=== PATIENT | female | born 1960 | race Caucasian/White ===

== ENCOUNTER 2017-02-15 11:56 | Emergency (ER) | payer OTHER ==
[2017-02-15] MEDS ORDERED: NS 1,000 ML IV ONE (12:28)
[2017-02-15] MEDS ORDERED: ONDANSETRON 4 MG/2 ML VIAL IVP ONE (12:28)
--- NOTE | 2017-02-15 12:28 | EDPHY ---
H & P Stated Complaint: bilateral vp scientific affairs shunts, being adjust, nauseous for days HPI/ROS: HPI CHIEF COMPLAINT: Headache with nausea HISTORY OF PRESENT ILLNESS: This patient very pleasant 56-year-old female significant past medical history for pseudotumor cerebri, status post MANAGER STRATEGY shots bilaterally, followed by Dr. Wang with Neurosurgery, she presents to the emergency room with ongoing nausea with headache but no vomiting. No neck pain no fever. She states that she had her shunts adjusted on either Wednesday or of last week she thinks that her pressure is low intracranially and that is why she is having ongoing throbbing frontal and global headache as well as associated nausea but no vomiting. She has been taking Zofran at home with minimal relief. She talked to Dr. Wang office and was referred to the emergency room. She does live in [place] drove here by her . Upon arrival here in emergency room she does complain of nausea, photophobia global headache however appears well. Past Medical History: Pseudotumor cerebri, thyroid disease Past Surgical History: MANAGER STRATEGY shunts, orthopedic surgery Social History: Denies daily use of drugs alcohol tobacco products, lives in [place] Dr. Wang with Neurosurgery is her neurosurgeon. Family History: Noncontributory ROS REVIEW OF SYSTEMS: A comprehensive 10 point review of systems is otherwise negative aside from elements mentioned in the history of present illness. Exam Constitutional appears well nontoxic triage nursing summary reviewed, vital signs reviewed, awake/alert. Eyes normal conjunctivae and sclera, EOMI, PERRLA. 4 mm equal reactive to light. HENT normal inspection, atraumatic, moist mucus membranes, no epistaxis, neck supple/ no meningismus, no raccoon eyes. Respiratory clear to auscultation bilaterally, normal breath sounds, no respiratory distress, no wheezing. Cardiovascular rate normal, regular rhythm, no murmur, no edema, distal pulses normal. Gastrointestinal soft, non-tender, no rebound, no guarding, normal bowel sounds, no distension, no pulsatile mass. Genitourinary no CVA tenderness. Musculoskeletal no midline vertebral tenderness, full range of motion, no calf swelling, no tenderness of extremities, no meningismus, good pulses, neurovascularly intact. Skin pink, warm, & dry, no rash, skin atraumatic. Neurologic awake, alert and oriented x 3, AAOx3, moves all 4 extremities equally, motor intact, sensory intact, CN II-XII intact, normal cerebellar, normal vision, normal speech. Psychiatric normal mood/affect. Heme/Lymph/Immune no lymphadenopathy. Differential Diagnosis: Includes but is not limited to in a particular order, MANAGER STRATEGY shunt malfunction, hydrocephalus, low-pressure hydrocephalus, dehydration, electrolyte disturbance, infection Medical Decision Making: Plan for this patient IV fluid bolus for hydration, IV morphine for pain control, IV Zofran for nausea consult Neurosurgery for evaluation after CT head without contrast Re-evaluation: 1328: A consult Neurosurgery this time to evaluate see the patient. Patient back from CT scan at this time. CT scan results pending. CT scan of the Head w/o The results of the study are normal shot placement. However compared her CT scan in 2011 she has new edema around her shots. The study was read by Dr. garvin. I viewed the images myself on the PACS system. 1358: Neurosurgery is at bedside evaluating the patient. Dr. Sonido Wang, Zafar VIDALES 1419: Neurosurgery did see and evaluate the patient Dr. Sonido Wang. They did adjust her MANAGER STRATEGY shunts. She does feel better in terms of pain. She tells me her headache is improved from 6/10 to 3/10. She would like to try something different sides morphine. She has done well with migraine cocktail in the past. 1514: Patient is feeling much better after migraine cocktail. She tells me her headache is resolved. Neurological exam unremarkable. CT scan reviewed blood work reviewed. Vital signs reviewed. She would like to go home. She is requesting a prescription for Zofran. I explained return emergency room if she develops any worsening symptoms includes chest pain, shortness of breath, severe headache, vomiting. She understands. Source: Patient - Personal History Current Tetanus/Diphtheria Vaccine: Yes Current Tetanus Diphtheria and Acellular Pertussis (TDAP): Yes - Medical/Surgical History Hx Asthma: No Hx Chronic Respiratory Disease: No Hx Diabetes: No Hx Cardiac Disease: No Hx Renal Disease: No Hx Cirrhosis: No Hx Alcoholism: No Hx HIV/AIDS: No Hx Splenectomy or Spleen Trauma: No Other PMH: MANAGER STRATEGY shunts, hypothyroid, tonsillectomy, hysterectomy (still has L ovary), L knee surgery, cholecystectomy - Social History Smoking Status: Never smoked Constitutional: Initial Vital Signs Temperature (C) 36.4 C 02/15/17 12:02 Heart Rate 84 02/15/17 12:02 Respiratory Rate 17 02/15/17 12:02 Blood Pressure 181/99 H 02/15/17 12:02 O2 Sat (%) 93 02/15/17 12:02 O2 Delivery Mode Room Air Allergies/Adverse Reactions: hydromorphone HCl [From Dilaudid] Allergy (Verified 02/15/17 12:00) paroxetine HCl [From Paxil] Allergy (Verified 02/15/17 12:00) "KINDEY SHUT DOWN" Penicillins Allergy (Verified 02/15/17 12:00) Hives Home Medications: Medication Instructions Recorded Aspirin 81mg (*) 02/15/17 Lisinopril 02/15/17 Ondansetron 02/15/17 Ondansetron HCl [Zofran] 4 mg PO Q4-6PRN PRN #10 tablet 02/15/17 Synthroid 02/15/17 Medical Decision Making - Diagnostics Imaging Results: Imaging Impressions Head CT 02/15/17 12:38 Impression: 1. Bilateral frontal ventricular peritoneal shunts without hydrocephalus. 2. No acute hemorrhage, midline shift, or epidural/subdural hematoma. 3. Nonspecific new white matter edema surrounding bilateral frontal shunt tracts in the subcortical convexity regions, left greater than right. 4. Consider MRI of the brain without and with contrast enhancement, if there is continued clinical concern. Findings and recommendations discussed with Emergency Department physician, David Barnard MD at 1357 hours, 02/15/2017. Final report concurs with initial preliminary interpretation. - Data Points Laboratory Results: Laboratory Results 02/15/17 12:35 02/15/17 12:35 02/15/17 02/15/17 02/15/17 12:35 12:35 12:35 WBC 7.51 10^3/uL 10^3/uL (3.80-9.50) RBC 5.36 10^6/uL H 10^6/uL (4.18-5.33) Hgb 15.2 g/dL g/dL (12.6-16.3) Hct 45.8 % % (38.0-47.0) MCV 85.4 fL fL (81.5-99.8) MCH 28.4 pg pg (27.9-34.1) MCHC 33.2 g/dL g/dL (32.4-36.7) RDW 13.5 % % (11.5-15.2) Plt Count 299 10^3/uL 10^3/uL (150-400) MPV 10.1 fL fL (8.7-11.7) Neut % (Auto) 56.7 % % (39.3-74.2) Lymph % (Auto) 34.1 % % (15.0-45.0) [place] % (Auto) 6.3 % % (4.5-13.0) Eos % (Auto) 1.9 % % (0.6-7.6) Baso % (Auto) 0.7 % % (0.3-1.7) Nucleat RBC Rel Count 0.0 % % (0.0-0.2) Absolute Neuts (auto) 4.27 10^3/uL 10^3/uL (1.70-6.50) Absolute Lymphs (auto) 2.56 10^3/uL 10^3/uL (1.00-3.00) Absolute Monos (auto) 0.47 10^3/uL 10^3/uL (0.30-0.80) Absolute Eos (auto) 0.14 10^3/uL 10^3/uL (0.03-0.40) Absolute Basos (auto) 0.05 10^3/uL 10^3/uL (0.02-0.10) Absolute Nucleated RBC 0.00 10^3/uL 10^3/uL (0-0.01) Immature Gran % 0.3 % % (0.0-1.1) Immature Gran # 0.02 10^3/uL 10^3/uL (0.00-0.10) PT 13.2 SEC SEC (12.0-15.0) INR 1.01 (0.83-1.16) APTT 27.7 SEC SEC (23.0-38.0) Sodium 136 mEq/L mEq/L (134-144) Potassium 3.7 mEq/L mEq/L (3.5-5.2) Chloride 98 mEq/L mEq/L (97-110) Carbon Dioxide 25 mEq/l mEq/l (22-31) Anion Gap 13 mEq/L mEq/L (8-16) BUN 8 mg/dL mg/dL (7-23) Creatinine 0.7 mg/dL mg/dL (0.6-1.0) Estimated GFR > 60 Glucose 219 mg/dL H mg/dL (70-100) Calcium 9.1 mg/dL mg/dL (8.5-10.4) Medications Given: Discontinued Medications Dexamethasone (Decadron Injection) 10 mg IVP EDNOW ONE Stop: 02/15/17 14:23 Last Admin: 02/15/17 14:35 Dose: 10 mg Diphenhydramine HCl (Benadryl Injection) 25 mg IVP EDNOW ONE Stop: 02/15/17 14:23 Last Admin: 02/15/17 14:35 Dose: 25 mg Sodium Chloride (Ns) 1,000 mls @ 0 mls/hr IV ONCE ONE; Wide Open PRN Reason: Protocol Stop: 02/15/17 12:29 Last Admin: 02/15/17 12:57 Dose: 1,000 mls Ketorolac Tromethamine (Toradol) 30 mg IVP EDNOW ONE Stop: 02/15/17 14:23 Last Admin: 02/15/17 14:35 Dose: 30 mg Metoclopramide HCl (Reglan Injection) 10 mg IVP EDNOW ONE Stop: 02/15/17 14:23 Last Admin: 02/15/17 14:35 Dose: 10 mg Morphine Sulfate (Morphine) 6 mg IVP EDNOW ONE Stop: 02/15/17 12:39 Last Admin: 02/15/17 12:58 Dose: 6 mg Morphine Sulfate (Morphine) 4 mg IVP EDNOW ONE Stop: 02/15/17 13:58 Last Admin: 02/15/17 14:35 Dose: 4 mg Ondansetron HCl (Zofran) 4 mg IVP EDNOW ONE Stop: 02/15/17 12:29 Last Admin: 02/15/17 14:44 Dose: Not Given Promethazine HCl (Phenergan) 6.25 mg IVP ONCE ONE Stop: 02/15/17 12:40 Last Admin: 02/15/17 12:58 Dose: 6.25 mg Departure - Departure Disposition: Home, Routine, Self-Care Clinical Impression: Headache Qualifiers: Headache type: unspecified Headache chronicity pattern: acute headache Intractability: intractable Qualified Code(s): R51 - Headache Condition: Good Instructions: General Headache (ED) Additional Instructions: 1. Return emergency room if you have worsening pain vomiting fever or questions or concerns. Referrals: XENIA HARMAN [Other] - As per Instructions Nadja Wang MD [Medical Doctor] - As per Instructions Prescriptions: Ondansetron HCl [Zofran] 4 mg PO Q4-6PRN PRN #10 tablet PRN Reason: Nausea/Vomiting, Use 1st
[2017-02-15] MEDS ORDERED: PROMETHAZINE HCL 25 MG/ML INJ IVP ONE (12:39)
[2017-02-15 12:42] LABS: % IMMATURE GRANULYOCYTES 0.3 % (0.0-1.1); ABSOLUTE IMMATURE GRANULOCYTES 0.02 10^3/uL (0.00-0.10); ADD DIFF? NO; ADD MORPH? NO; ADD SCAN? NO; ATYPICAL LYMPHOCYTE FLAG 0 (0-99); FRAGMENT RBC FLAG 0 (0-99); HEMATOCRIT 45.8 % (38.0-47.0); HEMOGLOBIN 15.2 g/dL (12.6-16.3); LEFT SHIFT FLG 0 (0-99); LIPEMIA HEMOLYSIS FLAG 80 (0-99); MEAN CELL HEMOGLOBIN 28.4 pg (27.9-34.1); MEAN CELL HEMOGLOBIN CONCENTR. 33.2 g/dL (32.4-36.7); MEAN CELL VOLUME 85.4 fL (81.5-99.8); MEAN PLATELET VOLUME 10.1 fL (8.7-11.7); PLATELET CLUMPS FLAG 0 (0-99); PLATELET COUNT 299 10^3/uL (150-400); RED BLOOD CELL COUNT 5.36 10^6/uL (4.18-5.33); RED CELL DISTRIBUTION WIDTH 13.5 % (11.5-15.2)
[2017-02-15 12:57] LABS: INR 1.01 (0.83-1.16); PROTIME(PATIENT) 13.2 SEC (12.0-15.0)
[2017-02-15 12:58] LABS: APTT 27.7 SEC (23.0-38.0)
[2017-02-15 13:11] LABS: ANION GAP 13 mEq/L (8-16); CALCIUM 9.1 mg/dL (8.5-10.4); CARBON DIOXIDE 25 mEq/l (22-31); CHLORIDE 98 mEq/L (97-110); CREATININE 0.7 mg/dL (0.6-1.0); GLOMERULAR FILTRATION RATE > 60; GLUCOSE 219 mg/dL (70-100); POTASSIUM 3.7 mEq/L (3.5-5.2); SODIUM 136 mEq/L (134-144)
[2017-02-15] MEDS ORDERED: DEXAMETHASONE 10 MG/ML VIAL IVP ONE (14:22)
[2017-02-15] MEDS ORDERED: METOCLOPRAMIDE 10 MG/2 ML VIAL IVP ONE (14:22)
[2017-02-15] MEDS ORDERED: KETOROLAC 30 MG/1 ML SDV IVP ONE (14:22)
[2017-02-15 14:44] VITALS: RESP 15
[2017-02-15 15:35] VITALS: BP 160/90; PULSE 69; TEMP 98.4; O2SAT 94
--- NOTE | 2017-02-15 17:28 | GCON ---
[f rep st] CONSULTATION DATE OF CONSULTATION: 02/15/2017 CHIEF COMPLAINT: Bilateral SENIOR CONTRACTS ADMINISTRATOR shunts adjusted last week, no experiencing headaches, nausea. HISTORY OF PRESENT ILLNESS: This is a 56-year-old female significant with a past history of a pseud otumor cerebri who is status post SENIOR CONTRACTS ADMINISTRATOR shunts bilaterally who is followed by Dr. Wang of Neurosurger y. She also has a history of a lumbar shunt that was placed approximately [address] Gen janel Gorman and she states this lumbar shunt is not working properly. Her present bilateral SENIOR CONTRACTS ADMINISTRATOR shunts were adjusted on February 09, 2017, in a neurosurgical office visit. REVIEW OF SYSTEMS: See HPI. PAST MEDICAL HISTORY: Positive for pseudotumor cerebri and thyroid disease. PAST SURGICAL HISTORY: SENIOR CONTRACTS ADMINISTRATOR shunt placement, lumbar shunt placement 20 years ago, and orthopedic surg anika. SOCIAL HISTORY: Denies any daily uses of drugs or alcohol or tobacco products. She lives in [place] . FAMILY HISTORY: Patient is unable to review family history. MEDICATIONS: Home medications include aspirin 81 mg, lisinopril, Zofran, and Synthroid. ALLERGIES: Dilaudid, Paxil, and penicillin. PHYSICAL EXAMINATION: GENERAL: Patient is alert and oriented x3, able to move all extremities x4. VITAL SIGNS: Temperature is 36.4 Celsius, heart rate is 84, respiratory rate 17, blood pressure 18 1/99, oxygen sat on room air is 93%. DIAGNOSTICS: CT of the brain without contrast was performed to evaluate her bilateral ventriculoper itoneal shunts which demonstrates negative for hydrocephalus. There is no acute hemorrhage or midli ne shift. There is nonspecific new white matter edema surrounding the bilateral frontal shunt tract s in the subcortical convexity region, left greater than right. When comparing to the last MRI of [facility] brain in August of 2012, Dr. Wang reviewed these images as well and does not feel the need to pursue a MRI of the brain for further evaluation. ASSESSMENT AND PLAN: This is a 56-year-old female patient of Dr. Sonido Wang's with bilateral ventri culoperitoneal shunts. The patient had her shunts adjusted on February 09, 2017, in the office. The patient was seen in the emergency room today with myself and Dr. Wang at 1:45 p.m., February 15. The patient's left shunt was reset back to 1.0 from 1.5. The patient's right shunt was reset to 1.5 from 2.0. The patient has a [employer] shunt. Patient was seen in the emergency room today. Her M edtronic shunt was reprogrammed and interrogated by Dr. Sonido Wang. She can follow up with [facility] regarding any concerns or worsening symptoms as needed. /[id number]/MODL
== END 2017-02-15 15:34 | disposition home or self-care (01) ==
DX: R51 Headache (principal); Z79.82 Long term (current) use of aspirin
CPT/HCPCS: 70450; 96375; 96376; 99285; J1200; J1885; J2550; J2765